=== PATIENT | female | born 1955 | race African-American/Black ===

== ENCOUNTER 2018-07-12 16:08 | Emergency (ER) | payer OTHER ==
[2018-07-12] MEDS: KETOROLAC 60 MG INJ IM (17:16)
== END 2018-07-12 17:38 | disposition home or self-care (01) ==
LOC: FTE 16:08
DX: M54.2 Cervicalgia (principal); I10 Essential (primary) hypertension
CPT/HCPCS: 93005; 96372; 99284-25

== ENCOUNTER 2019-03-21 07:19 | Observation (INO) | payer OTHER ==
[2019-03-21] MEDS ORDERED: NICARDipine HCL 30 MG CAPSULE PO (08:00)
[2019-03-21] MEDS: SOD CHLORIDE 0.9% 1,000 ML IV (08:18)
[2019-03-21] MEDS: LORAZEPAM 2 MG INJ IV (08:19)
[2019-03-21] MEDS: MECLIZINE 12.5 MG TAB PO (08:19)
[2019-03-21 09:05] LABS: ADD MAN DIFF? NO
[2019-03-21 09:06] LABS: BASOPHILS % 0.5 % (0.0-2.0); EOSINOPHILS # 0.1 10^3/ul (0.0-0.5); EOSINOPHILS % 2.5 % (0.0-7.0); HEMATOCRIT 44.4 % (37.0-47.0); HEMOGLOBIN 14.4 g/dl (12.0-16.0); LYMPHOCYTES # 1.6 10^3/ul (0.8-2.9); LYMPHOCYTES % 35.9 % (15.0-51.0); MEAN CORPUSCULAR HEMOGLOBIN 28.9 pg (29.0-33.0); MEAN CORPUSCULAR HGB CONC 32.4 g/dl (32.0-37.0); MEAN CORPUSCULAR VOLUME 89.2 fl (82.0-101.0); MEAN PLATELET VOLUME 11.5 fl (7.4-10.4); MONOCYTE # 0.3 10^3/ul (0.3-0.9); MONOCYTES % 7.8 % (0.0-11.0); NEUTROPHIL # 2.3 10^3/ul (1.6-7.5); NEUTROPHILS % 53.1 % (39.0-77.0); PLATELET COUNT 202 10^3/UL (140-415); RED BLOOD COUNT 4.98 10^6/ul (4.20-5.40); RED CELL DISTRIBUTION WIDTH 13.4 % (11.5-14.5)
[2019-03-21 09:06] LABS: WHITE BLOOD COUNT 4.4 10^3/ul (4.8-10.8)
[2019-03-21 10:06] LABS: ANION GAP 11 (5-13); BLOOD UREA NITROGEN 13 mg/dl (7-20); CALCIUM 8.6 mg/dl (8.4-10.2); CARBON DIOXIDE 27 mmol/L (21-31); CHLORIDE 106 mmol/L (97-110); CREATININE 0.66 mg/dl (0.44-1.00); Estimated GFR > 60 mL/min (>60); GLUCOSE 106 mg/dl (70-220); POTASSIUM 3.7 mmol/L (3.5-5.1); SODIUM 144 mmol/L (135-144)
[2019-03-21 10:18] LABS: TROPONIN-I < 0.012 ng/ml (0.000-0.120)
[2019-03-21] MEDS: INSULIN ASPART [NOVOLOG] 3 ML PEN SC ×3 (12:00→20:15)
[2019-03-21] MEDS ORDERED: DEXTROSE 50% 50 ML SYRINGE IV ×2 (13:00)
[2019-03-21] MEDS ORDERED: GLUCAGON 1 MG INJ IM (13:00)
[2019-03-21] MEDS ORDERED: GLUCOSE GEL 15 GRAM TUBE PO ×2 (13:00)
[2019-03-21] MEDS ORDERED: GLUCOSE GEL 15 GRAM TUBE BUCCAL (13:00)
[2019-03-21] MEDS: FUROSEMIDE 40 MG INJ IV (13:40)
[2019-03-21] MEDS: HYDROCHLOROTHIAZIDE 25 MG TAB PO (13:41)
[2019-03-21] MEDS: LISINOPRIL 20 MG TAB PO (13:41)
[2019-03-21] MEDS: AMLODIPINE 5 MG TAB PO (13:42)
[2019-03-22] MEDS: INSULIN ASPART [NOVOLOG] 3 ML PEN SC (07:31)
[2019-03-22] MEDS: HYDROCHLOROTHIAZIDE 25 MG TAB PO (08:48)
[2019-03-22] MEDS: LISINOPRIL 20 MG TAB PO (08:49)
== END 2019-03-22 12:59 | disposition home or self-care (01) ==
LOC: E/R 07:19 → 6WM 20:26
PROVIDERS: Internal Medicine
DX: H81.10 Benign paroxysmal vertigo, unspecified ear (principal); I10 Essential (primary) hypertension; E11.9 Type 2 diabetes mellitus without complications; Z79.84 Long term (current) use of oral hypoglycemic drugs
CPT/HCPCS: 36415; 70450; 70552; 71045; 80048; 82962; 84484; 85025; 93005; 93880; 96374; 97162; 99285-25; G0378